=== PATIENT | male | born 1945 | race Caucasian/White ===

== ENCOUNTER 2020-10-14 12:18 | Inpatient (IN) | payer BC ==
[2020-10-14] VITALS (320 sets, daily range): BP systolic 101–103; BP diastolic 66–69; PULSE 129–140; TEMP 39–39.2; O2SAT 58–100
[~2020-10-14] VITALS: Ht 175.3 cm; Wt 79.8 kg
[~2020-10-14 12:18] MED LIST: ALTACE 10MG TAB10 MG PO; ASPIRIN E.C. 8181 MG PO; CARDIO TEA PO; CARDIOSTEROL PO; CRESTOR40 MG PO; PEPCID 20MG TAB20 MG PO; TOPROL XL 50MG50 MG PO; ZOFRAN ODT4 MG PO
[2020-10-14 13:09] LABS: HEMATOCRIT 41.9 % (42.0-52.0); HEMOGLOBIN 14.3 g/dl (13.5-18.0); MEAN CELL VOLUME 93 fl (80.0-100.0); MEAN CORPUSCULAR HEMOGLOBIN 32 pg (27.0-31.0); MEAN CORPUSCULAR HGB CONC 34 g/dl (33.0-37.0); MEAN PLATELET VOLUME 10.8 fl (7.4-10.4); RED BLOOD COUNT 4.53 M/mm3 (4.20-5.60); REDCELL DISTRIBUTION WIDTH-CV 12.5 % (11.5-14.5)
[2020-10-14 13:10] LABS: INR 1.5 (0.8-3.0); PROTHROMBIN TIME 16.5 SECONDS (9.7-12.8)
[2020-10-14 13:14] LABS: PLATELET COUNT 38 K/mm3 (130-400)
[2020-10-14 13:37] LABS: TROPONIN-I 1.58 ng/mL (0.000-0.035)
[2020-10-14 13:59] LABS: BAND 9 % (0-10); LYMPHOCYTE 1 % (20.0-51.0); NEUTROPHILS 85 % (42.0-75.2); PLATELET ESTIMATE DECREASED (NORMAL)
[2020-10-14 14:06] LABS: ALBUMIN 2.9 gm/dL (3.5-5.0); BILIRUBIN,TOTAL 1.9 mg/dL (0.0-1.0); CREATININE, serum 0.89 (0.66-1.25); POTASSIUM 3.1 mmol/L (3.4-5.0); TOTAL PROTEIN 5.7 gm/dL (6.4-8.2)
[2020-10-14 14:15] LABS: COLLECTION METHOD CLEAN CATCH
[2020-10-14 14:27] LABS: MUCOUS Present /lpf; PH 5 (5-8); SQUAMOUS EPITHELIAL None Seen /hpf; URINE APPEARANCE Cloudy; URINE BACTERIA None Seen /hpf; URINE BILIRUBIN Negative (NEGATIVE); URINE BLOOD 3+ (NEGATIVE); URINE COLOR Yellow; URINE GLUCOSE Negative (NEGATIVE); URINE KETONE 1+ (NEGATIVE); URINE LEUKOCYTE ESTERASE Negative (NEGATIVE); URINE NITRATE Negative (NEGATIVE); URINE PROTEIN(semi-quant) 2+ (NEGATIVE); URINE RBC 20-50 /hpf; URINE UROBILINOGEN Negative (NEGATIVE)
[2020-10-14 15:07] LABS: D-DIMER > 5250.00 ng/mLDDu (200-230)
[2020-10-14 15:26] LABS: FIBRINOGEN 561 mg/dL (200-450)
[2020-10-14] MEDS ORDERED: UNISOM25 MG PO (15:37)
[2020-10-14] MEDS ORDERED: MELATONIN5 M1 SL (15:38)
--- NOTE | 2020-10-14 16:01 | NUR ---
CONFIRMED WITH NATHANIEL LUU REGARDING PLATELET ADMINISTRATION. HOSPITALIST ONLY WANTS ONE UNIT OF PLATELETS GIVEN. BLOOD BANK NOTIFIED. CRITICAL TROPONIN COMMUNICATED TO JUS AT THIS TIME.
[2020-10-14 18:49] LABS: TROPONIN-I 6 HR POST INITIAL 3.9 ng/mL (0.000-0.034)
[2020-10-14 19:14] LABS: ARTERIAL BLD GAS O2 SATURATION 95.7 % (92-100); ARTERIAL BLD GAS TCO2 CT 17.1; ARTERIAL BLOOD GAS BASE EXCESS -5.1 (-2-2); ARTERIAL BLOOD GAS HCO3 16.4 meq/L (22-26); ARTERIAL BLOOD GAS PO2 76.9 mmHg (80-100); ARTERIAL BLOOD GAS pH 7.47 (7.35-7.45)
[2020-10-14 19:15] LABS: ARTERIAL BLOOD GAS PCO2 22.9 mmHg (35-45)
--- NOTE | 2020-10-14 19:30 | NUR ---
REPORT GIVEN TO SVETLANA SCHWARTZ. DR. MCCALLUM CURRENTLY IN ICU SEEING PT. ORDERS PLACED.
--- NOTE | 2020-10-14 22:29 | NUR ---
Vancomycin Initial Dosing Pharmacy Note Ordering provider: Rozina Correa MD Indication/duration: Sepsis w/ concerns for endocarditis Relevant comorbidities: Hx mitral valve replacement, HTN LABS: WBC = 8.1, SCr = 0.89, Concern for MRSA Recommendation: Will draw troughs and follow levels. Loading dose: 1.5 grams ordered, some question as to whether rec'd 1 g or 1.5 g Maintenance dose: 1.5 grams every 12 hours Trough goal: 15-20 ug/mL
[2020-10-14 22:40] LABS: HEMATOCRIT 37.4 % (42.0-52.0); HEMOGLOBIN 12.8 g/dl (13.5-18.0); MEAN CELL VOLUME 93 fl (80.0-100.0); MEAN CORPUSCULAR HEMOGLOBIN 32 pg (27.0-31.0); MEAN CORPUSCULAR HGB CONC 34 g/dl (33.0-37.0); MEAN PLATELET VOLUME 10.8 fl (7.4-10.4); RED BLOOD COUNT 4.04 M/mm3 (4.20-5.60); REDCELL DISTRIBUTION WIDTH-CV 12.6 % (11.5-14.5)
[2020-10-14 22:46] LABS: PLATELET COUNT 22 K/mm3 (130-400)
--- NOTE | 2020-10-14 23:14 | NUR ---
E-ICU DR. DUONG AND HOSP NATHANIEL LOMELI CONTACTED WITH CRITCAL PLT LVL OF 22, NO ORDERS RECIEVED AT THIS TIME WILL CONTINUE TO MONITOR PT FOR ANY OVERT BLEEDING AND UPDATE PROVIDERS NEEDED.
--- NOTE | 2020-10-14 23:43 | NUR ---
PT RESTING IN BED, A/O X 1, NOT F/C, DOES DENY PAIN BUT MOANS WHEN TOUCED. PT STILL RECIEVING BOLUSES. WITH ADEQUET BPS, PA AND PERSONAL ACUTE DIALYSIS NURSE, UPDATED AND PT CURRENT STATUS AND RECENT LABS. WILLCONTINUE TO MONITOR PT STATUS AND UPDATE PROVIDERS NEEDED.
[2020-10-15] VITALS (731 sets, daily range): BP systolic 88–127; BP diastolic 55–77; PULSE 100–131; TEMP 37.5–39.1; O2SAT 61–100
[2020-10-15 00:25] LABS: BAND 47 % (0-10); LYMPHOCYTE 6 % (20.0-51.0); MYELOCYTE 1 % (0-0); NEUTROPHILS 32 % (42.0-75.2); PLATELET ESTIMATE DECREASED (NORMAL)
--- NOTE | 2020-10-15 03:30 | NUR ---
E-ICU WAS CALL TO UPDATE THAT PT WAS HAD BM AND WAS SENT FOR OCCULT STOOL. 0500 E-ICU WAS CALLED TO REPORT CRITICAL LABS, AND POSITIVE OCCULT STOOL, CONDOMN CATH PLACE ON PT. K-2.6 AND PLT - 20. AWAITING ORDERS 0700 DR. MCCALLUM UPDATED RE OVERNIGHT EVENT, K PROTOCOL WAS ORDER ON PT AND ONCOLOGY STATES THAT HE WILL PUCH TO ORDER PLATLETS. PT NOTED TO HAVE MOTTLING IN BILAT LEGS AND PURPLING OF THE TOES, LEVO GTT STARTED FOR INTERMITTENT SOFT PRESSURES EVEN AFTER 5L NS.
--- NOTE | 2020-10-15 04:39 | NUR ---
lAB CALLED WITH CRITICAL TROP OF 2.7, DR. ELAINE REQUESTED THAT WE CALL HER ONCE TROP ELEVATED TO 5 OR GREATER.
[2020-10-15 04:45] LABS: HEMATOCRIT 37.9 % (42.0-52.0); HEMOGLOBIN 13.2 g/dl (13.5-18.0); MEAN CELL VOLUME 92 fl (80.0-100.0); MEAN CORPUSCULAR HEMOGLOBIN 32 pg (27.0-31.0); MEAN CORPUSCULAR HGB CONC 35 g/dl (33.0-37.0); RED BLOOD COUNT 4.11 M/mm3 (4.20-5.60); REDCELL DISTRIBUTION WIDTH-CV 12.8 % (11.5-14.5)
[2020-10-15 04:52] LABS: PLATELET COUNT 20 K/mm3 (130-400)
[2020-10-15 04:55] LABS: INR 1.7 (0.8-3.0); PROTHROMBIN TIME 19.5 SECONDS (9.7-12.8)
[2020-10-15 05:02] LABS: ALBUMIN 2.3 gm/dL (3.5-5.0); BILIRUBIN,TOTAL 2.2 mg/dL (0.0-1.0); CALCIUM 6.5 mg/dL (8.4-10.2); CREATININE, serum 0.89 (0.66-1.25); TOTAL PROTEIN 4.8 gm/dL (6.4-8.2)
[2020-10-15 05:03] LABS: POTASSIUM 2.6 mmol/L (3.4-5.0)
[2020-10-15 05:08] LABS: BAND 53 % (0-10); NEUTROPHILS 43 % (42.0-75.2); PLATELET ESTIMATE DECREASED (NORMAL)
[2020-10-15 05:15] LABS: TROPONIN-I 2.9 ng/mL (0.000-0.035)
--- NOTE | 2020-10-15 11:06 | NUR ---
The patient is confused. [employer] Superintendent contacted the patient's , Danielle #[phone] to complete initial intake. The patient lives in [place] with Danielle. The patient does not use DME and was independent with ADLs prior to this hospitalization. The patient's PCP is Dr. Benavides and patient receives medications from [facility] [place]. The patient does not have advanced directives in the EMR. However, Kitty states they are complete and designate her. Kitty reports she has contacted Dr. Benavides to inform him of the patient's ICU admission. PCR Covid test pending. PT/OT ordered to ensure a safe discharge disposition. SW collaborated the above information with the patient's nurse.
--- NOTE | 2020-10-15 12:01 | NUR ---
Chaplain proctoryed outside of door of patient.
--- NOTE | 2020-10-15 19:54 | NUR ---
[id number]- PT A/OX3 AT THIS TIME . CONTINUES TO HAVE INTERMITTENT CONFUSION AND LETHARGY. FEVER NOTED. PRN TYLENOL ADMINISTERED. PT TO MRI WITH ANTHROPOLOGY LECTURER X2 AND THIS RN. PRN ATIVAN GIVEN DURING MRI FOR RESTLESSNESS AND SCORE OF 16 ON CIWA.
--- NOTE | 2020-10-15 20:22 | NUR ---
PT RESTING IN BED HEART RATE ELEVATED AND, VERY AGITATED, PT PLACED ON 2L NC SECONDARY TO PERIODS OF APNEA. TEMP 99.6AX, CALLED UNIT AND WAS UPDATED ON PT STATUS AND ABLE TO SPEAK TO PT. CONDOMN CATH REMAINS IN PLACE. CRITCAL K WAS CALLED BY LAB AND WILL BE REPLACED PER PROTOCOL. WILL CONTINUE TO MONITOR PT STATUS AND UPDATE PROVIDER AND NEEDED.
[2020-10-16] VITALS (512 sets, daily range): BP systolic 89–149; BP diastolic 53–90; PULSE 94–118; TEMP 97.7–100.4; O2SAT 49–100
[2020-10-16 05:25] LABS: HEMOGLOBIN 12.7 g/dl (13.5-18.0); MEAN CELL VOLUME 92 fl (80.0-100.0); MEAN CORPUSCULAR HEMOGLOBIN 32 pg (27.0-31.0); MEAN CORPUSCULAR HGB CONC 35 g/dl (33.0-37.0); RED BLOOD COUNT 3.97 M/mm3 (4.20-5.60); REDCELL DISTRIBUTION WIDTH-CV 13.3 % (11.5-14.5)
[2020-10-16 05:29] LABS: INR 1.7 (0.8-3.0); PROTHROMBIN TIME 18.8 SECONDS (9.7-12.8)
[2020-10-16 05:35] LABS: ALBUMIN 2.3 gm/dL (3.5-5.0); BILIRUBIN,TOTAL 1.2 mg/dL (0.0-1.0); CALCIUM 7.3 mg/dL (8.4-10.2); CREATININE, serum 0.81 (0.66-1.25); POTASSIUM 3.5 mmol/L (3.4-5.0); TOTAL PROTEIN 4.8 gm/dL (6.4-8.2)
[2020-10-16 05:44] LABS: HEMATOCRIT 36.4 % (42.0-52.0); PLATELET COUNT 21 K/mm3 (130-400)
[2020-10-16 05:51] LABS: BAND 25 % (0-10); BURR CELLS 1+; LYMPHOCYTE 1 % (20.0-51.0); NEUTROPHILS 70 % (42.0-75.2); PLATELET ESTIMATE DECREASED (NORMAL)
--- NOTE | 2020-10-16 07:28 | NUR ---
[facility] WAS CALL AND NOTIFIED OF OBED WITH DR. VIDALES THIS AM. THEY CALLED BACK AND RELAIED THAT THEY WOULD CALL US BACK WITH A TIME THAT THEY ARE AVAILABLE.
--- NOTE | 2020-10-16 07:30 | NUR ---
REPORT RECEIVED FROM MARIO MOTA. PT HAS LR AND KCL RUNNING. PT IN MITTS AND BEDALARM ACTIVE. WILL CONTIUE TO MONITOR.
--- NOTE | 2020-10-16 07:33 | NUR ---
RECEIVED CALL FROM SUZANNA WITH [facility] THAT THEY CAN DO OBED AT 0930. HAIM MOTA WITH CARDIOLOGY PAGED TO NOTIFY. AWAITING CALL BACK.
--- NOTE | 2020-10-16 07:55 | NUR ---
Sent another page to breaker machine tender regarding OBED time.
--- NOTE | 2020-10-16 08:15 | NUR ---
SPOKE WITH HAIM MOTA WITH CARDIOLOGY REGARDING OBED AND PLATLETS OF 21. STATES WILL DISCUSS WITH AND LET ME KNOW.
--- NOTE | 2020-10-16 08:29 | NUR ---
MESSAGED LEFT WITH RENETTA WITH INFECTION PREVENTION REGARDING TWO NEGATIVE COVIDS AND ISOLATION.
--- NOTE | 2020-10-16 08:54 | NUR ---
HAIM MOTA CALLED AND STATED WE WILL NOT DO OBED TODAY D/T PLATELETS. SUZANNA WITH ANESTHES[facility] AND NOTIFIED.
--- NOTE | 2020-10-16 09:32 | NUR ---
in consult with Dr. Cornell re: two negative Covid tests over 36 hr period and possible endocarditis as working diagnosis - may discontinue COVID isolation precautions.
--- NOTE | 2020-10-16 09:35 | NUR ---
DC ISOLATION PER RENETTA AND .
--- NOTE | 2020-10-16 09:40 | NUR ---
BC CULTURE DRAWN OF CENTRAL LINE. LAB HERE TO DRAW PERIPHERAL.
--- NOTE | 2020-10-16 10:16 | NUR ---
The patient's PCR Covid-19 test was negative.
--- NOTE | 2020-10-16 10:22 | NUR ---
CALL PLACED TO MRI TO SCHEDULE. THEY STATED THEY WILL CALL BACK. CALL PLACED TO BLOOD BANK AND STATES PLATELETS ARE READY.
--- NOTE | 2020-10-16 10:42 | NUR ---
SPOKE WITH MRI. PLAN TO DO MRI AT 1430. WILL START PRECEDEX AT 1400.
--- NOTE | 2020-10-16 13:33 | NUR ---
FLIGHT OPERATIONS DISPATCH CLERK CALLED FOR CONSULT FOR TUBE FEEDING.
--- NOTE | 2020-10-16 14:00 | NUR ---
REQUEST FOR RECORDS FROM [facility] FAXED.
--- NOTE | 2020-10-16 16:15 | NUR ---
PRECEDEX DRIP STARTED AND TITRATED TO HELP COMPLETE MRI. DRIP DECREASED DUE TO BP IN THE 80'S. DRIP STOPPED ONCE MRI COMPLETED.
[2020-10-16 16:54] LABS: MAGNESIUM 2.3 mg/dL (1.6-2.3); PHOSPHOROUS 2.2 mg/dL (2.5-4.5)
--- NOTE | 2020-10-16 17:40 | NUR ---
1720-PT'S RYLAN CALLED THIS RN AND STATED THEY WOULD LIKE TO TRANSFER THE PT TO [facility] IN [place]. ARMANI ARMSTRONG WITH THE HOSPITALIST NOTIFIED. [employer] AND HUMANITIES CHAIR NOTIFIED. 1740- NOTED MRI RESULTS AND CALLED TO ARMANI ARMSTRONG.
--- NOTE | 2020-10-16 18:50 | NUR ---
PT'S BACK PACK, PHONE, AND MEDS GIVEN TO PT'S RYLAN. CONSENTS FOR TRANSFER SIGNED.
--- NOTE | 2020-10-16 20:00 | NUR ---
BREATHING PATTERN CHANGE SLOW THAN RAPID BACK TO SLOW, ADVISED HOSPITALIST AND E CARE
[2020-10-16 20:26] LABS: ARTERIAL BLD GAS O2 SATURATION 94.5 % (92-100); ARTERIAL BLD GAS TCO2 CT 20.2; ARTERIAL BLOOD GAS BASE EXCESS -4.3 (-2-2); ARTERIAL BLOOD GAS HCO3 19.3 meq/L (22-26); ARTERIAL BLOOD GAS PO2 76.2 mmHg (80-100); ARTERIAL BLOOD GAS pH 7.41 (7.35-7.45)
--- NOTE | 2020-10-16 20:45 | NUR ---
[facility] CAME AND TRANSPORTED PATIENT TO [facility], THEY LEFT WITH PATIENT AT 2044, CENTRAL LINE AND IV INTACT, AT 1950 CALLED TO REPORT TO [facility] CICU BED 4.
== END 2020-10-16 20:45 | disposition short-term general hospital (02) | DRG 871 ==
LOC: COL.ER 12:18 → ICU 14:53
PROVIDERS: Emergency Medicine; Internal Medicine Critical Care Medicine; Internal Medicine Pulmonary Disease; Student in an Organized Health Care Education/Training Program; ADMIT Student in an Organized Health Care Education/Training Program
PROC: 02HV33Z Insertion of Infusion Device into Superior Vena Cava, Percutaneous Approach (ICD-10-PCS; principal; 2020-10-14)
DX: A41.01 Sepsis due to Methicillin susceptible Staphylococcus aureus (principal); I21.A1 Myocardial infarction type 2; I63.40 Cerebral infarction due to embolism of unspecified cerebral artery; G03.9 Meningitis, unspecified; G93.41 Metabolic encephalopathy; D65 Disseminated intravascular coagulation [defibrination syndrome]; G93.40 Encephalopathy, unspecified; I38 Endocarditis, valve unspecified; I76 Septic arterial embolism; R65.20 Severe sepsis without septic shock; Z20.828 Contact with and (suspected) exposure to other viral communicable diseases; I25.10 Atherosclerotic heart disease of native coronary artery without angina pectoris; I10 Essential (primary) hypertension; K21.9 Gastro-esophageal reflux disease without esophagitis; K52.9 Noninfective gastroenteritis and colitis, unspecified; R74.01 Elevation of levels of liver transaminase levels; K29.80 Duodenitis without bleeding; R31.9 Hematuria, unspecified; G47.00 Insomnia, unspecified; Z95.5 Presence of coronary angioplasty implant and graft; Z95.2 Presence of prosthetic heart valve
CPT/HCPCS: 99223-AI; 99233-AI; 99239; A9585; C9113; J0690; J0692; J2060; J2543; J3370; J3480; J7030; J7040; J7050; J7060; J7120; P9035

== ENCOUNTER → 2022-07-29 | Outpatient (CLI) | payer MEDICARE, BC ==
[~2022-07-29] MED LIST changes: +MELATONIN5 M1 SL; +UNISOM25 MG PO
== END ==
LOC: COL.VAS 09:45
DX: I65.21 Occlusion and stenosis of right carotid artery (principal)